=== PATIENT | female | born 1945 | race Caucasian/White ===

== ENCOUNTER 2016-12-17 21:09 | Emergency (ER) | payer MEDICARE, BC ==
[~2016-12-17] VITALS: Ht 160 cm; Wt 75.9 kg
[~2016-12-17 21:09] MED LIST: AMOXICILLIN 50500 MG PO; HYDROXYZINE HCL25 M1 PO; LISINOPRIL/HCTZ1 TA1 PO; LISINOPRIL20 MG PO; LISINOPRIL40 MG PO; PRAVASTATIN40 MG PO; PREDNISONE10 M2 PO; ZYLOPRIM100 MG PO; ZYRTEC10 M3 PO
[2016-12-17] MEDS ORDERED: FLOMAX0.4 MG PO (23:36)
[2016-12-17] MEDS ORDERED: KETOROLAC10 MG PO (23:36)
[2016-12-17 23:49] VITALS: BP 198/103
== END 2016-12-17 23:49 | disposition home or self-care (01) ==
LOC: ED 21:09
DX: N20.0 Calculus of kidney (principal); Z87.442 Personal history of urinary calculi; Z86.39 Personal history of other endocrine, nutritional and metabolic disease
CPT/HCPCS: A4353; J2270; J7030

== ENCOUNTER → 2017-05-24 | Outpatient (CLI) | payer MEDICARE, BC ==
[~2017-05-24] MED LIST changes: +FLOMAX0.4 MG PO; +KETOROLAC10 MG PO
== END ==
LOC: MAMMO 10:59
DX: Z12.31 Encounter for screening mammogram for malignant neoplasm of breast (principal)
CPT/HCPCS: G0202

== ENCOUNTER → 2019-03-27 | Outpatient (CLI) | payer MEDICARE, BC | LOC: MAMMO 12:55 | DX: Z12.31 Encounter for screening mammogram for malignant neoplasm of breast (principal) ==

== ENCOUNTER 2020-10-15 18:55 | Emergency (ER) | payer OTHER, MEDICARE, BC ==
[2020-10-15] MEDS ORDERED: METOPROLOL SUCC50 M1 PO (19:23)
[2020-10-15] MEDS ORDERED: ATORVASTATIN CA20 MG PO (19:24)
[2020-10-15] MEDS ORDERED: ASPIRIN 81M81 MG/TA2 PO (19:24)
[2020-10-15] MEDS ORDERED: AMLODIPINE BESYL5 MG PO (19:24)
[2020-10-15] MEDS ORDERED: CLOPIDOGREL75 M2 PO (19:24)
[2020-10-15] MEDS ORDERED: [UNRECOGNIZED DRUG - OTHER] PO (19:25)
[2020-10-15 20:40] VITALS: BP 171/84
== END 2020-10-15 20:40 | disposition home or self-care (01) ==
LOC: ED 18:55
DX: S80.12XA Contusion of left lower leg, initial encounter (principal); I10 Essential (primary) hypertension; Z86.73 Personal history of transient ischemic attack (TIA), and cerebral infarction without residual deficits; Z88.8 Allergy status to other drugs, medicaments and biological substances; Z79.1 Long term (current) use of non-steroidal anti-inflammatories (NSAID); Z79.82 Long term (current) use of aspirin; Z79.01 Long term (current) use of anticoagulants; W23.1XXA Caught, crushed, jammed, or pinched between stationary objects, initial encounter; Y93.H2 Activity, gardening and landscaping; Y92.007 Garden or yard of unspecified non-institutional (private) residence as the place of occurrence of the external cause

== ENCOUNTER → 2020-10-28 | Outpatient (CLI) | payer OTHER, MEDICARE, BC ==
[2020-10-15 20:40] VITALS: BP 171/84
[~2020-10-28] MED LIST changes: +AMLODIPINE BESYL5 MG PO; +ASPIRIN 81M81 MG/TA2 PO; +ATORVASTATIN CA20 MG PO; +CLOPIDOGREL75 M2 PO; +METOPROLOL SUCC50 M1 PO; +[UNRECOGNIZED DRUG - OTHER] PO
== END ==
LOC: VAS 11:32
DX: M79.662 Pain in left lower leg (principal)

== ENCOUNTER → 2020-11-03 | Outpatient (CLI) | payer MEDICARE, BC ==
[2020-10-15 20:40] VITALS: BP 171/84
== END ==
LOC: MAMMO 11:19
DX: Z12.31 Encounter for screening mammogram for malignant neoplasm of breast (principal)

== ENCOUNTER → 2021-10-22 | Outpatient (CLI) | payer MEDICARE, BC ==
[2021-10-22 11:51] LABS: BASO # 0.04 K/mm3 (0.02-0.10); EOS # 0.13 K/mm3 (0.04-0.40); EOS % 2.5 % (1.0-5.0); HEMATOCRIT 40.5 % (37.0-47.0); HEMOGLOBIN 13.5 g/dL (12.5-16.0); LYMPH# 1.29 K/mm3 (1.50-4.00); MEAN CELL VOLUME 94 fl (78-100); MEAN CORPUSCULAR HEMOGLOBIN 32 pg (27-31); MEAN CORPUSCULAR HGB CONC 33 g/dL (33-37); MEAN PLATELET VOLUME 10.4 fl (7.4-10.4); MONO # 0.48 K/mm3 (0.20-0.80); NEU # 3.23 K/mm3 (1.40-6.50); PLATELET COUNT 180 K/mm3 (130-400); RED BLOOD COUNT 4.29 M/mm3 (4.10-5.30); RED CELL DISTRIBUTION WIDTH 11.8 % (11.5-14.5); WHITE BLOOD COUNT 5.2 K/mm3 (4.8-10.8)
[2021-10-22 11:59] LABS: POTASSIUM 3.8 mmol/L (3.5-5.1)
[2021-10-22 12:00] LABS: CALCIUM 9.6 mg/dL (8.3-10.5)
== END ==
LOC: LAB 11:32
PROVIDERS: Family Medicine
DX: R42 Dizziness and giddiness (principal)

== ENCOUNTER → 2022-02-01 | Outpatient (CLI) | payer MEDICARE, BC | LOC: RAD 09:00 → VAS 09:00 | DX: R60.0 Localized edema (principal) ==

== ENCOUNTER → 2022-07-12 | Outpatient (CLI) | payer MEDICARE, BC | LOC: RAD 12:05 | DX: I10 Essential (primary) hypertension (principal) ==

== ENCOUNTER 2023-05-02 00:38 | Emergency (ER) | payer MEDICARE, BC ==
[~2023-05-02] VITALS: Wt 62.5 kg
[2023-05-02 01:27] LABS: BASO # 0.05 K/mm3 (0.02-0.10); EOS # 0.34 K/mm3 (0.04-0.40); EOS % 5.7 % (1.0-5.0); HEMATOCRIT 38.6 % (37.0-47.0); LYMPH# 2.51 K/mm3 (1.50-4.00); MEAN CELL VOLUME 94 fl (78-100); MEAN CORPUSCULAR HEMOGLOBIN 32 pg (27-31); MEAN CORPUSCULAR HGB CONC 34 g/dL (33-37); MEAN PLATELET VOLUME 9.8 fl (7.4-10.4); MONO # 0.77 K/mm3 (0.20-0.80); NEU # 2.31 K/mm3 (1.40-6.50); PLATELET COUNT 185 K/mm3 (130-400); RED BLOOD COUNT 4.09 M/mm3 (4.10-5.30); RED CELL DISTRIBUTION WIDTH 11.9 % (11.5-14.5)
[2023-05-02 01:34] LABS: ALBUMIN 4.6 g/dL (3.4-4.8)
[2023-05-02 01:35] LABS: SODIUM 141 mmol/L (136-145)
[2023-05-02 01:36] LABS: CALCIUM 9.6 mg/dL (8.3-10.5)
[2023-05-02 01:37] LABS: GLUCOSE 118 mg/dL (65-105); TOTAL PROTEIN 7.1 g/dL (6.2-8.1)
[2023-05-02 01:38] LABS: CARBON DIOXIDE 22 mmol/L (23-31)
[2023-05-02 01:39] LABS: TOTAL BILIRUBIN 1.6 mg/dL (0.2-1.2)
[2023-05-02 01:40] LABS: PROTHROMBIN TIME 10.3 SECONDS (9.0-12.0)
[2023-05-02 01:42] LABS: AST-SGOT 23 U/L (5-34)
[2023-05-02 01:43] LABS: ALT/SGPT 18 U/L (0-55)
[2023-05-02 01:50] LABS: TROPONIN-I < 0.030 ng/mL (<0.030)
[2023-05-02 03:21] LABS: PH-URINE 6.5 (5.0 - 8.0); URINE APPEARANCE CLEAR; URINE BILIRUBIN NEGATIVE (NEGATIVE); URINE BLOOD 50 ery/uL (NEGATIVE); URINE COLOR YELLOW; URINE GLUCOSE NEGATIVE (NEGATIVE); URINE KETONE NEGATIVE (NEGATIVE); URINE NITRATE NEGATIVE (NEGATIVE); URINE PROTEIN(semi-quant) NEGATIVE (NEGATIVE); URINE UROBILINOGEN NORMAL (NORMAL)
[2023-05-02 03:22] LABS: URINE LEUKOCYTE ESTERASE 1+ (NEGATIVE)
[2023-05-02 07:58] VITALS: BP 118/72
== END 2023-05-02 08:48 | disposition short-term general hospital (02) ==
LOC: ED 00:38
PROVIDERS: Physician Assistant
DX: R42 Dizziness and giddiness (principal); R41.82 Altered mental status, unspecified; F80.81 Childhood onset fluency disorder; Z86.73 Personal history of transient ischemic attack (TIA), and cerebral infarction without residual deficits
CPT/HCPCS: J2405; J7040; Q0177; Q9967